=== PATIENT | male | born 1975 | race Caucasian/White ===

== ENCOUNTER 2018-10-20 11:20 | Emergency (ER) | payer BC ==
[2018-10-20 11:39] VITALS: BP 129/75
[2018-10-20] MEDS ORDERED: Amoxicillin/Clavulanate TAB* 875 MG PO ONE (11:47)
[2018-10-20] MEDS ORDERED: Ibuprofen TAB* 600 MG PO ONE (11:47)
--- NOTE | 2018-10-20 11:52 | UC ---
Throat Pain/Nasal Reggie HPI - HPI Summary HPI Summary: 43 yo male CC sore throat. Woke up yesterday morning with the sore throat. Pain is worse on left side. Pain worse with swallowing. No difficulty breathing. Also body aches and fatigue. - History of Current Complaint Chief Complaint: UCRespiratory Stated Complaint: ST Time Seen by Provider: 10/20/18 11:41 Pain Intensity: 7 - Allergies/Home Medications Allergies/Adverse Reactions: Allergies Allergy/AdvReac Type Severity Reaction Status Date / Time No Known Allergies Allergy Verified 10/20/18 11:33 PMH/Surg Hx/FS Hx/Imm Hx Previously Healthy: Yes - Surgical History Surgical History: Yes Surgery Procedure, Year, and Place: HERNIA REPAIR. THROAT DIALATION. [facility] - Family History Known Family History: Positive: None - Social History Alcohol Use: Rare Substance Use Type: None Smoking Status (MU): Never Smoked Tobacco - Immunization History Most Recent Tetanus Shot: UNKNOWN Review of Systems All Other Systems Reviewed And Are Negative: Yes Constitutional: Positive: Fever, Chills, Fatigue, Other - see hpi Skin: Positive: Negative Eyes: Positive: Negative ENT: Positive: Sore Throat, Ear Ache - left Respiratory: Positive: Negative Cardiovascular: Positive: Negative Gastrointestinal: Positive: Negative Motor: Positive: Negative Neurovascular: Positive: Negative Musculoskeletal: Positive: Arthralgia, Myalgia Neurological: Positive: Other - see hpi Psychological: Positive: Negative Is Patient Immunocompromised?: No Physical Exam Triage Information Reviewed: Yes Appearance: Well-Nourished, Ill-Appearing - mild, Pain Distress - mild Vital Signs: Initial Vital Signs Temp 99.4 F 10/20/18 11:33 Pulse 130 10/20/18 11:33 Resp 16 10/20/18 11:33 BP 129/75 10/20/18 11:33 Pulse Ox 97 10/20/18 11:33 Vital Signs Reviewed: Yes Eye Exam: Normal Eyes: Positive: Conjunctiva Clear ENT: Positive: Pharyngeal erythema, TMs normal, Tonsillar swelling - symmetric, 1+ b/l, oropharynx open, Uvula midline. Negative: Muffled voice, Hoarse voice Neck: Positive: Supple, Other: - Tenderness to palpation at left anterior upper neck Respiratory: Positive: Lungs clear, Normal breath sounds, No respiratory distress Cardiovascular: Positive: RRR Musculoskeletal: Positive: Strength Intact, ROM Intact Neurological: Positive: Alert Psychological: Positive: Age Appropriate Behavior Skin Exam: Normal Throat Pain/Nasal Course/Dx - Course Course Of Treatment: Strep negative. Due to the swelling in the left neck will treat with ABx. Airway open in Clinic. I discussed with the patient if did not improve or worsened, he needed evaluation and treatment in the Emergency Department. - Differential Dx/Diagnosis Provider Diagnosis: Pharyngitis, Sore throat Discharge - Sign-Out/Discharge Documenting (check all that apply): Patient Departure All imaging exams completed and their final reports reviewed: No Studies - Discharge Plan Condition: Stable Disposition: HOME Prescriptions: Amoxicillin/Clavulanate TAB* [Augmentin TAB 875*] 875 mg PO BID #19 tab Patient Education Materials: Pharyngitis (ED) Referrals: [facility] [Outside] Additional Instructions: FOLLOW UP WITH YOUR DOCTOR IF NOT COMPLETELY IMPROVED. GO TO THE EMERGENCY DEPARTMENT IF NOT IMPROVED OR WORSE; DIFFICULTY SWALLOWING OR BREATHING, YOU FEEL ILL, YOU FEEL LIKE PASSING OUT OR ANY QUESTIONS OR CONCERNS. - Billing Disposition and Condition Condition: STABLE Disposition: Home
== END 2018-10-20 12:28 | disposition home or self-care (01) ==
LOC: UCCORT 11:20
DX: J02.9 Acute pharyngitis, unspecified (principal)
CPT/HCPCS: 87651; 99212; A9270-GY; G0463